=== PATIENT | female | born 1965 | race Caucasian/White ===

== ENCOUNTER 2018-07-29 10:50 | Day surgery (SDC) | payer OTHER ==
[2018-07-28 14:42] LABS: HEMATOCRIT 39.1 % (36.0-48.0); HEMOGLOBIN 13.4 g/dL (12-16); MCH 32.1 pg (26.0-34.0); MCHC 34.3 g/dL (31.0-37.0); MCV 93.5 fL (80.0-100.0); RBC 4.18 10x6/uL (4.00-5.40); RDW 12.5 % (11.5-14.5); WBC 6.6 10x3/uL (4.8-10.8)
[~2018-07-29] VITALS: Ht 152.4 cm; Wt 57.2 kg
[~2018-07-29 10:50] MED LIST: CELEXA10 MG PO; CYCLOBENZAPRINE5 MG PO; DUEXIS 800-26.1 EACH PO; VALIUM5 MG PO; advair diskus
[2018-07-29 11:31] VITALS: BP 135/89; Ht 152.4 cm; Wt 57.2 kg
--- NOTE | 2018-07-29 11:50 | NUR ---
1148 PT VERY ANXIOUS AND READY FOR SURGERY. TOOK VALIUM AT HOME BUT WANTS TO VALIUM AVAILABLE FOR PRE-OP. ICE APPLIED TO RIGHT SHOULDER FOR SOME PAIN RELIEF.
[2018-07-29] MEDS ORDERED: OXYCODONE HCL5 M1 PO (14:44)
[2018-07-29] MEDS ORDERED: VISTARIL50 MG PO (14:44)
--- NOTE | 2018-07-29 15:00 | NUR ---
NOTICIED PATIENT GRIMACING WHILE TAKING MONITORS OFF FOR D/C. PATIENT STATES "I THINK I AM STARTING TO HURT A LITTLE BIT". OFFERED TO ADMINISTER PAIN MEDICATION PER ANESTHESIA ORDERS HOWEVER WE WOULD NEED TO STAY IN RECOVERY FOR A LONGER TIME DUE TO REQUIRED MONITORING. PATIENT DENIES PAIN MEDICATION AT THIS TIME STATES "I AM READY TO JUST GET BACK OVER TO MY ROOM".
--- NOTE | 2018-07-29 16:33 | OP ---
PATIENT NAME: SHAGUFTA ALEJANDRO MEDICAL RECORD: [id number] :67 LOCATION:SARA ADMISSION DATE: SURGEON: ALEKS SYLVESTER DO DATE OF OPERATION: 07/29/2018 PROCEDURES PERFORMED: Right shoulder arthroscopy with bicep tenodesis, distal clavicle excision, subacromial decompression, and labral debridement. 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 INDICATIONS: Ms. Alejandor is a 53-year-old female who has been dealing with right shoulder pain for quite some time. She has tried all manner of nonoperative treatment including physical therapy and injections to no avail. She discussed with my nurse practitioner her treatment options after having an MRI, which demonstrated a large SLAP tear as well as a partial rotator cuff tear, which was not seen on the scope. I informed her we could do a subacromial decompression with bicep tenodesis to look at her rotator cuff as well as distal clavicle excision. After having failed all nonoperative treatment, she was okay with that plan. She was aware of risks including infection, bleeding, damage to nerve or vessels, need for further surgery, and even ; and she signed the consent. SURGEON: Aleks Sylvester DO DESCRIPTION OF PROCEDURE: The patient received a block by anesthesia in the preoperative area. She was taken to the operative suite and laid in the left lateral decubitus position with her right arm up and axillary roll under the axilla. The right shoulder was then prepped and draped in sterile fashion. Time-out was performed. Everyone was in agreement of correct side, site, patient, and procedure. Once it was prepped and draped and the time-out had been performed, the posterior portal was established using an 18-gauge spinal needle and then 60 mL of normal saline was injected into the shoulder joint itself. Then, this was removed. A #11 blade scalpel was used to cut the skin for the portal. Trocar was then entered into the shoulder joint. Once the shoulder joint was entered, the water was turned on. The large SLAP tear was noted to be very severe and the anterior portal was then established with an 18-gauge spinal needle and a #11 blade scalpel. The burner was then brought in through the anterior portal and bicep tenotomy was done at that time. The rotator cuff was then inspected. The subscapularis tendon was in good shape with no tear seen as well as the supraspinatus, the infraspinatus, and the humeral head. She did have a small spot of less than 3 mm of grade III chondromalacia noted on it. The labrum was then debrided with the burner. The scope was then switched into the subacromial space. Subacromial decompression was done. The anterolateral aspect of the acromion was removed as well as the distal clavicle, opening the AC joint up to approximately 7 mm. The rotator cuff was then inspected thoroughly on the bursal side and no tears were seen in it either. The arm was rotated internally and externally. The scope was then removed and the attention was drawn to the anterior humerus, where an incision had been marked out for the bicep tenodesis site. The skin was incised with a #15 blade scalpel. Careful dissection was made down to the long head of the bicep tendon. It was pulled out through the wound, whipstitched, and then drill OPERATIVE REPORT [id number] SHAGUFTA ALEJANDRO hole was placed into the humerus just through the single cortex. Then, the whipstitch tendon was put on a button and then cinched down. Once the button was placed into the hole that was drilled, it was cinched down and then tied. Then, a free needle was used to go through to the tendon again and retied. Then, the extra tendon and suture were cut at that time. The site was irrigated and then closed with 2-0 Vicryl on the skin and 4-0 Monocryl ran on the skin. The anterior, lateral, and posterior portals were all closed with 4-0 Vicryl in interrupted fashion. The lateral portal had been established once the subacromial space was entered with an 18-gauge spinal needle and a #11 blade scalpel. Once the sites were closed with 4-0 Monocryl, Dermabond was placed on each of the incision sites. Telfa and Tegaderm were placed on that. An ABD with Medipore tape was then placed over the shoulder. The patient was then awakened and taken to recovery in stable condition and placed in a sling. COMPLICATIONS: None. BLOOD LOSS: Minimal. TRANSINT:[id number] Voice Confirmation ID: [id number] DOCUMENT ID: [id number] ALEKS SYLVESTER DO at 1633 CC: [id number] DICTATION DATE: 07/29/18 1451 CHARGE MASTER COORDINATOR: 07/29/18 1552 [facility] 07/29/[address] [address]
== END 2018-07-29 16:15 | disposition home or self-care (01) ==
LOC: D.OPS 10:50 → D.PAN 11:10 → D.OPS 11:15 → D.PAN 11:15 → D.OPS 16:15
PROVIDERS: Anesthesiology; ATTEND Orthopaedic Surgery
DX: S43.431A Superior glenoid labrum lesion of right shoulder, initial encounter (principal); M13.811 Other specified arthritis, right shoulder; M75.41 Impingement syndrome of right shoulder; M94.211 Chondromalacia, right shoulder; Z01.812 Encounter for preprocedural laboratory examination; X58.XXXA Exposure to other specified factors, initial encounter

== ENCOUNTER → 2018-08-21 15:01 | Outpatient (CLI) | payer OTHER ==
[2018-07-29 11:31] VITALS: BMI 24.6
[~2018-08-21 15:01] MED LIST changes: +OXYCODONE HCL5 M1 PO; +VISTARIL50 MG PO
== END | disposition home or self-care (01) ==
LOC: D.CT 15:00
PROVIDERS: ATTEND Orthopaedic Surgery
DX: R22.1 Localized swelling, mass and lump, neck (principal)

== ENCOUNTER 2018-11-04 06:35 | Day surgery (SDC) | payer OTHER ==
[2018-11-03 13:37] LABS: HEMATOCRIT 41.9 % (36.0-48.0); HEMOGLOBIN 14.2 g/dL (12-16); MCH 32.6 pg (26.0-34.0); MCHC 33.9 g/dL (31.0-37.0); MCV 96.1 fL (80.0-100.0); MEAN PLATELET VOLUME 10.4 fL (7.4-10.4); RBC 4.36 10x6/uL (4.00-5.40); WBC 6.2 10x3/uL (4.8-10.8)
[~2018-11-04] VITALS: Ht 152.4 cm; Wt 55.3 kg
[~2018-11-04 06:35] MED LIST changes: +ACETAMINOPHEN325 MG PO; +ADVAIR 250/501 DISK INH; +BUSPIRONE HCL7.5 MG PO; +ULTRAM50 MG PO; -advair diskus
[2018-11-04] MEDS ORDERED: DUEXIS 800-26.1 EACH PO (06:56)
[2018-11-04 06:58] VITALS: BP 146/88; Ht 152.4 cm; Wt 55.3 kg
[2018-11-04] MEDS ORDERED: PERCOCET 10-321 EAC1 PO (11:45)
[2018-11-04] MEDS ORDERED: VISTARIL50 MG PO (11:45)
--- NOTE | 2018-11-04 13:55 | NUR ---
IV REMOVED AND ASSISTED WITH GETTING DRESSED AND INSTRUCTIONS GIVEN D/C HOME 2669
--- NOTE | 2018-11-04 14:09 | OP ---
PATIENT NAME: SHAGUFTA ALEJANDRO MEDICAL RECORD: [id number] :67 LOCATION:SARA ADMISSION DATE: SURGEON: BOUBACAR SYLVESTER DO DATE OF OPERATION: 11/04/2018 PROCEDURE PERFORMED: Left shoulder arthroscopy with rotator cuff repair, labral debridement, and biceps tenodesis. PREOPERATIVE DIAGNOSES: Left shoulder SLAP tear and massive rotator cuff tear. POSTOPERATIVE DIAGNOSES: Left shoulder SLAP tear and massive rotator cuff tear. INDICATIONS: Ms. Alejandro is a 53-year-old female who had an MRI done few weeks ago and it has demonstrated a rotator cuff tear in the supraspinatus and retracted 3 cm. She said she fell a couple of months ago and it has been hurting her since. I informed her that, with that retraction, it did not appear to have any fatty atrophy in the tendon; but with that amount of retraction, it would be a very difficult repair. I would attempt to repair it, but that she is at risk for retear and may not be able to repair it. She was okay with that as were the other risks of infection, bleeding, damage to nerves and vessels, and need for further surgery. She signed the consent. SURGEON: Boubacar Sylvester DO DISPERSION MIXER: LUIS Forbes DESCRIPTION OF PROCEDURE: The patient received a block in the preoperative area by anesthesia. She was taken to the operative suite and laid in the right lateral decubitus position with left shoulder up. Left shoulder was prepped and draped in sterile fashion. Time-out was performed and everyone was in agreement with correct side, site, patient, and procedure. Once that was done, the shoulder was insufflated with 60 mL of normal saline. Using 18-gauge spinal needle to the posterior portal, #11 blade scalpel was then used to establish posterior portal and the trocar was entered in the shoulder joint. The camera was then entered. The labral tear was seen as well as the massive supraspinatus tear with retraction. Anterior portal site was established with 18-guage spinal needle and 11 blade scalpel. Burner was brought in and biceps tenotomy was done at that time and labral debridement. The scope was then switched to the subacromial space. I attempted to get the adhesions down and off of the supraspinatus tendon and used a grasper to pull it over for the repair and then opened and did this further by getting a stitch in and pulling and breaking up the adhesions under the coracoid as well as under the acromion. The tendon did not pull all the way over. There was a longitudinal tear in the muscle. This was fixed with xacu-an-rhod stitch through the anchors and 2 anchors were used medially. I sutured the tendon down to the greater tuberosity after it had been decorticated. Then, 2 crossing stitches were used to fix the xwyo-up-fkkm longitudinal tear that she had. A separate stitch was then used to tie this tear to the infraspinatus, which was not torn. Then, 2 lateral row anchors were used to pull it over. The Regeneten graft was then put on top of this with kennedy medially and laterally. Then, the site was irrigated thoroughly and closed with 2-0 Vicryl in a ibbopz-wv-syvia fashion on the deltoid fascia, in inverted interrupted fashion on the skin, and then 4-0 Monocryl around the skin. A separate incision was then made on the anterior part of the humerus. Careful dissection was made down to the long head of the biceps tendon. This was pulled out through a whipstitch and a single button was put unicortically through the OPERATIVE REPORT [id number] SHAGUFTA ALEJANDRO, cinched down the bicep tendon to that, and then a free needle was used to tie through the bicep tendon and tied down. Once that was completed, the site was irrigated, closed with 2-0 Vicryl in inverted interrupted fashion, 4-0 Monocryl on the skin, and then 4-0 Monocryl was used in inverted interrupted fashion along the 2 scope portals of anterior and posterior. Then, Dermabond glue was placed on that with Telfa and Tegaderm upon those. She was awakened and taken to recovery in stable condition. BLOOD LOSS: Approximately 15 mL. COMPLICATIONS: None. TRANSINT:[id number] Voice Confirmation ID: [id number] DOCUMENT ID: [id number] BOUBACAR SYLVESTER DO at 1409 CC: [id number] DICTATION DATE: 11/04/18 1156 DOUBLE REAMER OPERATOR: 11/04/18 1236 [facility] 11/04/18 [facility] [address] [place] [address]
== END 2018-11-04 13:25 | disposition home or self-care (01) ==
LOC: D.OPS 06:35 → D.PAN 08:45 → D.OPS 08:45 → D.PAN 09:00 → D.OPS 10:00
PROVIDERS: Anesthesiology; ATTEND Orthopaedic Surgery
DX: S43.432A Superior glenoid labrum lesion of left shoulder, initial encounter (principal); M75.112 Incomplete rotator cuff tear or rupture of left shoulder, not specified as traumatic; W19.XXXA Unspecified fall, initial encounter; Z01.812 Encounter for preprocedural laboratory examination

== ENCOUNTER → 2019-02-13 15:02 | Outpatient (CLI) | payer OTHER ==
[2018-11-04 06:58] VITALS: BMI 23.8
[~2019-02-13 15:02] MED LIST changes: +PERCOCET 10-321 EAC1 PO
== END | disposition home or self-care (01) ==
LOC: D.MRI 15:02
PROVIDERS: ATTEND Nurse Practitioner Family
DX: M25.511 Pain in right shoulder (principal)

== ENCOUNTER 2019-04-23 18:19 | Inpatient (IN) | payer OTHER ==
[~2019-04-23] VITALS: Ht 152.4 cm; Wt 52.2 kg
--- NOTE | ~2019-04-23 | OP ---
PATIENT NAME: SHAGUFTA BANEGAS MEDICAL RECORD: [id number] :67 LOCATION:D.MS [id number] ADMISSION DATE:04/23/19 SURGEON: WILBER BULLOCK MD DATE OF OPERATION: 04/27/2019 PREOPERATIVE DIAGNOSES: 1. Right upper quadrant pain. 2. Right lower quadrant pain. 3. Pancreatitis. 4. Biliary dyskinesia. POSTOPERATIVE DIAGNOSES: 1. Right upper quadrant pain. 2. Right lower quadrant pain. 3. Pancreatitis. 4. Biliary dyskinesia. 5. Hepatomegaly. PROCEDURES: 1. Laparoscopic cholecystectomy. 2. Intraoperative cholangiography without immediate surgeon interpretation. 3. 14-gauge core needle liver biopsies. 4. Laparoscopic appendectomy. SURGEON: Wilber Bullock MD CLOTH PICKER: None. BLOOD LOSS: Minimal. ANESTHESIA: General. COMPLICATIONS: None. The patient had a normal ejection fraction on the biliary scan with ejection fraction. However, she did have exact reproduction of symptoms with ingestion of Ensure. The indication for the appendectomy is right lower quadrant pain. The appendectomy was performed as it may be therapeutic or it could avoid diagnostic confusion in the future should the patient have recurrence or persistence of right lower quadrant abdominal pain. OPERATIVE COURSE: The patient was conveyed to the operating room electively on 04/27/2019. General anesthesia was induced by the anesthesia staff. The abdomen was sterilely prepped and draped. An incision was accomplished in the left upper quadrant. A Veress needle was inserted through the skin incision into the peritoneal cavity. CO2 insufflation was begun. Once a sufficient pneumoperitoneum had been achieved, a 5-mm trocar was inserted through an incision in the epigastrium. Under direct internal vision utilizing a television camera, a 5-mm trocar was inserted far laterally in the right upper quadrant. A 12-mm trocar was inserted through an incision at the umbilicus. During insertion of the Veress needle and all trocars, there appeared to have been no injury to the bowels, any intraperitoneal or retroperitoneal structures. An abdominal survey was undertaken. The indication for the liver biopsy was hepatomegaly. Under laparoscopic guidance, I percutaneously accessed the right OPERATIVE REPORT [id number] SHAGUFTA BANEGAS upper quadrant utilizing a 14-gauge core biopsy device. Cores were obtained over the convexity of the liver. The biopsy sites were made hemostatic with electrocautery. I then advanced a grasper and grasped the gallbladder. I advanced a cholangiogram trocar and punctured the fundus of the gallbladder. I aspirated bile. I then injected dye. Under real time fluoroscopy, static cholangiographic images were obtained and these are sent to the radiologist for interpretation. The gallbladder was retracted cephalad. The infundibulum was retracted laterally. Blunt dissection was begun in the triangle of Calot. One cystic artery and one cystic duct were identified. These were clipped multiply and divided between clips. The gallbladder was then excised from its bed in the liver. It was placed within a bag retrieval device and was withdrawn through the umbilical fascia defect. The patient was then placed in Trendelenburg. Utilizing endoscopic Александр retractors, the appendix was noted. A window was created at the base of the mesoappendix. I stapled across the tip of the cecum with an Endo-ADELINA type stapler utilizing a blue load. I then took down the mesoappendix utilizing the laparoscopic EnSeal device. The appendix was placed within a bag retrieval device. It was withdrawn out through the umbilical fascia defect. I replaced the 12-mm trocar. I irrigated in the right lower quadrant as well as the right upper quadrant. There was no bleeding even at low pressure of 8. The 12-mm trocar was removed. Utilizing the João-Amee suture closure device and 0 Vicryl sutures, I closed the fascial defect at the umbilicus. The umbilical skin incision was closed with interrupted 4-0 Vicryl Rapide sutures. The other skin incisions were closed with interrupted intracuticular 3-0 Vicryls. Benzoin and Steri-Strips were applied. The patient was then extubated and conveyed to post-anesthesia care unit where she was in stable condition. I plan that she will be dismissed home soon on an narcotic analgesic as well as Colace. TRANSINT:[id number] Voice Confirmation ID: [id number] DOCUMENT ID: [id number] WILBER BULLOCK MD CC: KENZIE ROSADO DO [id number] DICTATION DATE: 04/28/1954 LIMITED RADIOLOGY TECHNICIAN: 04/28/19 1206 DIS IN 04/27/19 [id number] [place] [address]
--- NOTE | 2019-04-23 18:36 | NUR ---
RECEIVED PATIENT DIRECT ADMIT FROM DR. ROSADO'S OFFICE. ALERT AND ORIENTED. C/O ABDOMINAL PAIN. ADMITTED WITH PANCREATITIS. NO S/S OF ACUTE DISTRESS NOTED. WILL CONTINUE TO MONITOR.
[2019-04-23 19:19] LABS: HEMATOCRIT 27.4 % (36.0-48.0); HEMOGLOBIN 9.1 g/dL (12-16); MCH 32.7 pg (26.0-34.0); MCHC 33.2 g/dL (31.0-37.0); MCV 98.6 fL (80.0-100.0); MEAN PLATELET VOLUME 10.3 fL (7.4-10.4); PLATELET COUNT 205 10x3/uL (130-400); RBC 2.78 10x6/uL (4.00-5.40); RDW 12.4 % (11.5-14.5); WBC 9.7 10x3/uL (4.8-10.8)
[2019-04-23 19:30] LABS: ALBUMIN 1.7 g/dL (3.4-5.0); ALKALINE PHOSPHATASE 115 U/L (46-116); ALT (SGPT) 46 U/L (10-68); AMYLASE - SERUM 27 U/L (25-115); BILIRUBIN - TOTAL 0.73 mg/dL (0.2-1.3); CALC OSMOLALITY 274 mosm/kg (275-300); CARBON DIOXIDE 24.4 mmol/L (21.0-32.0); CHLORIDE - SERUM 105 mmol/L (98-107); CREATININE - SERUM 0.7 mg/dL (0.6-1.3); GLUCOSE 120 mg/dL (74-106); LIPASE 215 U/L (73-393); POTASSIUM - SERUM 3.3 mmol/L (3.5-5.1); PROTEIN - SERUM 6.2 g/dL (6.4-8.2); SODIUM 138 mmol/L (136-145); UREA NITROGEN 6 mg/dL (7-18); eGFR NON AFRICAN AMERICAN > 90 mL/min (90-120)
[2019-04-23 19:56] LABS: EOSINOPHILS 1 % (0-7); LYMPHOCYTES 16 % (15-50); MONOCYTES 11 % (2-11); NEUTROPHILS 56 % (40-80); PLATELET ESTIMATE NORMAL
[2019-04-23 20:00] VITALS: BP 122/72
[2019-04-23 22:01] VITALS: BP 122/72; BMI 22.5
[2019-04-23] MEDS ORDERED: METOPROLOL TART50 MG PO (22:28)
[2019-04-23] MEDS ORDERED: CELEXA40 MG PO (22:30)
[2019-04-24] VITALS: BP 84/49
[2019-04-24 00:34] LABS: APPEARANCE CLEAR (CLEAR); BILIRUBIN NEGATIVE (NEGATIVE); COLOR YELLOW (YELLOW); GLUCOSE NEGATIVE (NEGATIVE); KETONE NEGATIVE (NEGATIVE); NITRITE POSITIVE (NEGATIVE); PROTEIN 1+ mg/dL (NEGATIVE); SPECIFIC GRAVITY 1.005 (1.005-1.020); UROBILINOGEN NORMAL (NORMAL)
[2019-04-24 00:35] LABS: EPITHELIAL CELLS 0-5 /hpf (0-5); RED CELLS - URINE NONE SEEN /hpf (0-5); WHITE CELLS - URINE 0-5 /hpf (NEGATIVE)
[2019-04-24 00:36] LABS: BACTERIA MANY /hpf (NEGATIVE)
--- NOTE | 2019-04-24 03:07 | NUR ---
ASSESSED AT THE BEGINNING OF THE SHIFT. SHE IS ALERT AND OREINTED, ABLE TO VERBALIZE NEEDS. AT THE BEGINNING IT WAS HARD TO GET AN IV IN PLAC[place] FOR CT SCAN. SHE WAS STUCK 6 TIMES, FIRST GETTING A LITTLE ONE IN HER RIGHT FOREARM THAT WAS SLOW TO ACCEPT MEDS BUT DID NOT BLOW. THEN WE OBTAINED ONE IN THE RIGHT WRIST THAT WOULD ALLOW A CT SCAN. SHE HAS HAD PAIN MEDS TWO TIMES FOR ABD PAIN WHICH APPEARS SEVERE. AT THIS TIME SHE IS SLEEPING.
[2019-04-24 04:00] VITALS: BP 100/56
[2019-04-24 06:19] LABS: BASOPHILS 0.2 % (0-2); EOSINOPHILS 1.5 % (0-7); HEMATOCRIT 23.8 % (36.0-48.0); HEMOGLOBIN 7.8 g/dL (12-16); IMMATURE GRANULOCYTES 6.1 % (0-5); LYMPHOCYTES 14.8 % (15-50); MCH 32.6 pg (26.0-34.0); MCHC 32.8 g/dL (31.0-37.0); MCV 99.6 fL (80.0-100.0); MEAN PLATELET VOLUME 10.3 fL (7.4-10.4); MONOCYTES 14.8 % (2-11); NEUTROPHILS 62.6 % (40-80); PLATELET COUNT 201 10x3/uL (130-400); RBC 2.39 10x6/uL (4.00-5.40); RDW 12.5 % (11.5-14.5); WBC 9.3 10x3/uL (4.8-10.8)
[2019-04-24 06:35] LABS: CALC OSMOLALITY 284 mosm/kg (275-300); CALCIUM 7.6 mg/dL (8.5-10.1); CARBON DIOXIDE 25.1 mmol/L (21.0-32.0); CHLORIDE - SERUM 110 mmol/L (98-107); CREATININE - SERUM 0.6 mg/dL (0.6-1.3); MAGNESIUM - SERUM 1.6 mg/dL (1.8-2.4); PHOSPHOROUS 2.5 mg/dL (2.5-4.9); POTASSIUM - SERUM 3.3 mmol/L (3.5-5.1); SODIUM 145 mmol/L (136-145); UREA NITROGEN 6 mg/dL (7-18); eGFR NON AFRICAN AMERICAN > 90 mL/min (90-120)
[2019-04-24 06:37] LABS: GLUCOSE 71 mg/dL (74-106)
--- NOTE | 2019-04-24 07:24 | NUR ---
PT IS RESTING IN BED WITH EYES OPEN. RESPIRATIONS ARE EVEN AND UNLABORED. PT REPORTS PAIN 8/10 TO RLQ. WILL ADDRESS. SEE EMAR. PT DENIES PRESENCE OF N/V. PIV TO RIGHT FA X 2 INFUSING WITHOUT DIFFICULTY. BED IS IN THE LOWEST POSITION. CALL LIGHT AND BEDSIDE TABLE ARE WITIHN REACH. SIDE RAILS X 2. PT DENIES FURTHER NEEDS. WILL CONT TO MONITOR.
[2019-04-24 07:55] LABS: BASOPHILS 0.2 % (0-2); EOSINOPHILS 1.6 % (0-7); HEMOGLOBIN 8.1 g/dL (12-16); IMMATURE GRANULOCYTES 3.9 % (0-5); LYMPHOCYTES 11.8 % (15-50); MCH 32.5 pg (26.0-34.0); MCHC 32.4 g/dL (31.0-37.0); MCV 100.4 fL (80.0-100.0); MONOCYTES 16.5 % (2-11); PLATELET COUNT 196 10x3/uL (130-400); RBC 2.49 10x6/uL (4.00-5.40); RDW 12.5 % (11.5-14.5); WBC 9.6 10x3/uL (4.8-10.8)
[2019-04-24 08:29] VITALS: BP 121/72
[2019-04-24 08:37] LABS: CHOL - HDL RATIO 3.2 ratio (2.3-4.1); LDL-HDL RATIO 1.7 ratio (1.5-3.5)
[2019-04-24 10:30] LABS: % SATURATION 12 % (15-55); IRON 13 ug/dl (35-150); TOTAL IRON BIND CAPACITY 108 ug/dl (260-445); UNSAT IRON BIND CAPACITY 95 ug/dl (150-375)
[2019-04-24 12:52] VITALS: BP 134/71
[2019-04-24 13:03] VITALS: BMI 22.4
--- NOTE | 2019-04-24 14:32 | NUR ---
PT WITH NOTICABLE IRRITABILITY AND REPORTS ANXIETY WITH HOSPITALIZATION. WILL ADDRESS. SEE EMAR.
[2019-04-24 18:14] VITALS: BP 124/71
[2019-04-24 20:00] VITALS: BP 124/70
[2019-04-24 21:01] VITALS: Ht 152.4 cm; Wt 52.2 kg
[2019-04-25] VITALS (8 sets, daily range): BP systolic 94–180; BP diastolic 57–82
--- NOTE | 2019-04-25 06:24 | NUR ---
ASSESSED AT THE BEGINNING OF THE SHIFT. PT IS ALERT AND ORIENTED, ABLE TO VERBALIZE NEEDS. SHE HAS NOT REQUESTED MUCH DURING THE NIGHT. WHEN CHECKED ON SHE APPEARS TO BE ASLEEP WITH NO COMPLAINTS.SHE HAS BEEN UP TO THE BATHROOM AD SONIA AND AT MIDNIGHT WE PLACED HER NPO FOR A PIPPIDA SCAN THIS MORNING. SHE WAS INFORMED ABOUT THE NEED TO NOT TAKE PAIN MEDS SO THE TOOK HER LAST MED MED AT THAT TIME. SHE IS STILL RESTING QUIET WITH NO COMPLAINTS VOICED.
[2019-04-25 06:28] LABS: BASOPHILS 0.1 % (0-2); EOSINOPHILS 1.3 % (0-7); HEMATOCRIT 24.6 % (36.0-48.0); LYMPHOCYTES 8.9 % (15-50); MCH 32.9 pg (26.0-34.0); MCHC 32.5 g/dL (31.0-37.0); MCV 101.2 fL (80.0-100.0); MEAN PLATELET VOLUME 10.1 fL (7.4-10.4); MONOCYTES 16.7 % (2-11); RBC 2.43 10x6/uL (4.00-5.40); RDW 12.7 % (11.5-14.5)
[2019-04-25 06:30] LABS: PLATELET COUNT 254 10x3/uL (130-400); WBC 14.1 10x3/uL (4.8-10.8)
[2019-04-25 06:52] LABS: CALCIUM 7.8 mg/dL (8.5-10.1); CARBON DIOXIDE 21.9 mmol/L (21.0-32.0); CHLORIDE - SERUM 109 mmol/L (98-107); CREATININE - SERUM 0.6 mg/dL (0.6-1.3); MAGNESIUM - SERUM 1.7 mg/dL (1.8-2.4); POTASSIUM - SERUM 3.8 mmol/L (3.5-5.1); SODIUM 142 mmol/L (136-145); eGFR NON AFRICAN AMERICAN > 90 mL/min (90-120)
[2019-04-25 06:53] LABS: PHOSPHOROUS 3.2 mg/dL (2.5-4.9)
[2019-04-25 06:54] LABS: CALC OSMOLALITY 277 mosm/kg (275-300); GLUCOSE 62 mg/dL (74-106); UREA NITROGEN 3 mg/dL (7-18)
--- NOTE | 2019-04-25 08:39 | NUR ---
PATIENT SITTING UP IN BED. STATES PAIN IS A 9 OUT OF 10 ON THE PAIN SCALE. REQUESTS A DRINK OF WATER. I TOLD HER WE CANNOT DO THAT UNTIL THE PIPDA SCAN. THAT IF WE HAVE ANYTHING BY MOUTH OR PAIN MEDICATION THEN THE RESULTS OF THE TEST WOULD BE INACCURATE. WELL WE WOULD HAVE TO POSTPONE THE TEST. PATIENT VERBALISED UNDERSTANDING. CL IN REACH. WCTM
--- NOTE | 2019-04-25 12:37 | NUR ---
PATIENT BACK FROM NM SCAN. MEDICATIONS GIVEN. PAIN MED PROVIDED. WATER PROVIDED. CL IN ROOM. FAMILY IN ROOM. ERICK
--- NOTE | 2019-04-25 14:59 | NUR ---
PATIENT HAD A SHOWER. REATTACHED TO IV THERAPY. FAMILY IN ROOM. REAPPLIED TO TELEMETRY. CL IN REACH. PROVIDED FRESH WATER. ERICK
--- NOTE | 2019-04-25 19:00 | NUR ---
BEDSIDE REPORT RECEIVED AND CARE OF PT ASSUMED. PT LYING IN SUPINE POSITION WITH EYES CLOSED. IV TO RIGHT FA PATENT WITH MVI INFUSING AT 125 ML/HR. TELEMETRY IN PLACE PER ORDER. WILL MONITOR FOR NEEDS.
--- NOTE | 2019-04-25 20:38 | NUR ---
HS MEDICATIONS GIVEN. WILL CONTINUE TO MONITOR FOR NEEDS.
--- NOTE | 2019-04-25 21:11 | NUR ---
CONSENTED FOR BLOOD TRANSFUSION WITH WITNESS NURSE.
--- NOTE | 2019-04-25 21:20 | NUR ---
ELEVATED TEMP OF 100.1 PRIOR TO BLOOD TRANSFUSION. GAVE PRN TYLENOL 500 MG PO.
--- NOTE | 2019-04-25 21:24 | NUR ---
STARTED PRBC INFUSION. WILL MONITOR CLOSLEY.
--- NOTE | 2019-04-25 22:00 | NUR ---
PAUSED BLOOD, FLUSHED IV, AND GAVE DILAUDID IVP PER REQUEST FOR PAIN, PER PRN ORDER. LINE FLUSHED PRIOR TO RE-STARTING BLOOD.
--- NOTE | 2019-04-25 23:52 | NUR ---
BLOOD TRANSFUSION COMPLETE AND LINE FLUSHING. VITALS STABLE AND PT IS AFEBRILE...STATES SHE IS FEELING BETTER ALREADY.
[2019-04-26 04:00] VITALS: BP 127/68
[2019-04-26 07:06] LABS: HEMATOCRIT 26.3 % (36.0-48.0); HEMOGLOBIN 8.5 g/dL (12-16); MCH 31.8 pg (26.0-34.0); MCHC 32.3 g/dL (31.0-37.0); PLATELET COUNT 288 10x3/uL (130-400); RBC 2.67 10x6/uL (4.00-5.40); RDW 14.7 % (11.5-14.5); WBC 14.7 10x3/uL (4.8-10.8)
[2019-04-26 07:10] LABS: MCV 98.5 fL (80.0-100.0)
[2019-04-26 07:29] LABS: LYMPHOCYTES 7 % (15-50); MONOCYTES 11 % (2-11); NEUTROPHILS 75 % (40-80); PLATELET ESTIMATE NORMAL
[2019-04-26 07:46] LABS: CALCIUM 7.8 mg/dL (8.5-10.1); CARBON DIOXIDE 22.9 mmol/L (21.0-32.0); CHLORIDE - SERUM 108 mmol/L (98-107); CREATININE - SERUM 0.5 mg/dL (0.6-1.3); MAGNESIUM - SERUM 1.9 mg/dL (1.8-2.4); PHOSPHOROUS 3.6 mg/dL (2.5-4.9); SODIUM 141 mmol/L (136-145); UREA NITROGEN 3 mg/dL (7-18); eGFR NON AFRICAN AMERICAN > 90 mL/min (90-120)
[2019-04-26 07:47] LABS: CALC OSMOLALITY 275 mosm/kg (275-300); GLUCOSE 63 mg/dL (74-106)
[2019-04-26 08:41] VITALS: BP 126/59
[2019-04-26 12:06] VITALS: BP 142/76
[2019-04-26 17:36] VITALS: BP 126/69
--- NOTE | 2019-04-26 19:00 | NUR ---
BEDSIDE REPORT RECEIVED AND CARE OF PT ASSUMED. PT LYING IN SUPINE POSITION WITH EYES CLOSED. IV TO RIGHT FA PATENT WITH NS INFUSING AT 100 ML/HR. WILL MONITOR FOR NEEDS.
[2019-04-26 20:00] VITALS: BP 126/61
--- NOTE | 2019-04-26 20:04 | NUR ---
HS MEDICATIONS GIVEN.
--- NOTE | 2019-04-26 20:50 | NUR ---
HIBACLENS SHOWER PERFORMED AND ALL LINENS AND GOWN CHANGED.
--- NOTE | 2019-04-26 21:33 | NUR ---
GAVE 150 ML OF MAG CITRATE PER NEW ORDER.
--- NOTE | 2019-04-26 22:50 | NUR ---
GAVE DILAUDID 0.5 MG IVP PER REQUEST FOR PAIN. WILL MONITOR FOR EFFECTIVENESSS.
[2019-04-27] VITALS: BP 98/551
--- NOTE | 2019-04-27 00:05 | NUR ---
NPO STATUS BEGINS NOW. ALL FOOD AND DRINKS REMOVED FROM BEDSIDE TABLE.
[2019-04-27 04:00] VITALS: BP 127/73
[2019-04-27 06:20] LABS: BASOPHILS 0.1 % (0-2); EOSINOPHILS 0.4 % (0-7); HEMATOCRIT 24.2 % (36.0-48.0); IMMATURE GRANULOCYTES 1.9 % (0-5); LYMPHOCYTES 8.2 % (15-50); MCH 31.9 pg (26.0-34.0); MCHC 33.1 g/dL (31.0-37.0); MEAN PLATELET VOLUME 9.7 fL (7.4-10.4); MONOCYTES 12.6 % (2-11); NEUTROPHILS 76.8 % (40-80); PLATELET COUNT 329 10x3/uL (130-400); RBC 2.51 10x6/uL (4.00-5.40); RDW 14.5 % (11.5-14.5); WBC 15.9 10x3/uL (4.8-10.8)
[2019-04-27 06:36] LABS: CALC OSMOLALITY 277 mosm/kg (275-300); CALCIUM 7.8 mg/dL (8.5-10.1); CARBON DIOXIDE 22.9 mmol/L (21.0-32.0); CHLORIDE - SERUM 109 mmol/L (98-107); CREATININE - SERUM 0.5 mg/dL (0.6-1.3); GLUCOSE 85 mg/dL (74-106); MAGNESIUM - SERUM 1.8 mg/dL (1.8-2.4); PHOSPHOROUS 2.8 mg/dL (2.5-4.9); POTASSIUM - SERUM 3.5 mmol/L (3.5-5.1); SODIUM 142 mmol/L (136-145); UREA NITROGEN 2 mg/dL (7-18); eGFR NON AFRICAN AMERICAN > 90 mL/min (90-120)
[2019-04-27 06:38] LABS: MCV 96.4 fL (80.0-100.0)
[2019-04-27 08:11] VITALS: BP 143/81
--- NOTE | 2019-04-27 09:44 | NUR ---
ASSESSMENT DONE. DENIES NEEDS
--- NOTE | 2019-04-27 10:35 | NUR ---
I have reviewed this patient and I concur with the Shift Assessment completed by the Licensed Practical Nurse today this shift.
--- NOTE | 2019-04-27 11:17 | NUR ---
TO OR PER BED
--- NOTE | 2019-04-27 13:59 | NUR ---
Nutrition follow-up: Pt NPO for Gabriele lopeze today Labs reviewed Wt: 114# RDN will monitor pts diet advancement and tolerance post-surery RDN following.
[2019-04-27 15:07] VITALS: BP 145/83
[2019-04-27] MEDS ORDERED: NICODERM C1 PATCH .1 TRANSDERM (15:46)
[2019-04-27] MEDS ORDERED: Levaquin PO (15:46)
--- NOTE | 2019-04-27 16:16 | MORECARE ---
CASE MANAGEMENT DISCHARGE SUMMARY PATIENT: SHAGUFTA BANEGAS BRYSON UNIT: [id number] ADM DATE: 04/23/19 AGE: 54 : 67 SEX: F [facility] AUTHOR: EDWIGE PONCE PHYSICIAN: REFERRING PHYSICIAN: KENZIE ROSADO DO DATE OF SERVICE: 04/27/19 Discharge Plan Patient Name[facility] SHAGUFTA BANEGAS [facility] [facility] 1965 Planned Disposition: Home Anticipated Discharge Date: 04/27/19 Discharge Date: Expected LOS: 4 Initial Reviewer: [email or web address] Initial Review Date: 04/27/2019 Generated: 04/27/19 5:16 pm Patient Name: SHAGUFTA BANEGAS Page [id number] at 1616 All edits/amendments must be made on the electronic document DICTATION DATE: 04/27/191615 OFFICE MACHINE INSTALLER: STEVENSON 04/27/191615 RPT#: [id number] DC DATE: STATUS: ADM IN [facility] [address] [place] [address] END OF REPORT
--- NOTE | 2019-04-27 16:23 | MORECARE ---
CASE MANAGEMENT DISCHARGE SUMMARY PATIENT: SHAGUFTA ALEJANDRO UNIT: [id number] ADM DATE: 04/23/19 AGE: 54 : 67 SEX: F ROOM/BED: D.[facility] AUTHOR: EDWIGE PONCE PHYSICIAN: REFERRING PHYSICIAN: KENZIE ROSADO DO DATE OF SERVICE: 04/27/19 Discharge Plan Patient Name: SHAGUFTA ALEJANDRO [facility] [facility] 1965 Planned Disposition: Home Anticipated Discharge Date: 04/27/19 Discharge Date: Expected LOS: 4 Initial Reviewer: [email or web address] Initial Review Date: 04/27/2019 Generated: 04/27/19 5:22 pm DCPIA - Discharge Planning Initial Assessment Updated by [email or web address]: Bozena Webb on 04/27/19 4:16 pm * Is the patient Alert and Oriented? Yes * How many steps to enter\exit or inside your home? 0/0 * PCP Dr. Rosado * Pharmacy [facility] * Preadmission Environment Home with Family * ADLs Independent * Equipment None * List name and contact numbers for known caregivers / representatives who currently or will assist patient after discharge: Jere Alejandro - [facility] - [phone] * Verbal permission to speak to the caregivers and representatives has been obtained from the patient. Yes * Community resources currently utilized None * Additional services required to return to the preadmission environment? No * Can the patient safely return to the preadmission environment? Yes * Has this patient been hospitalized within the prior 30 days at any hospital? No Last DP export: 04/27/19 3:16 pm Patient Name: SHAGUFTA ALEJANDRO Page [id number] at 1623 All edits/amendments must be made on the electronic document DICTATION DATE: 04/27/19 162 PASTRY CHEF: STEVENSON 04/27/191621 RPT#: [id number] DC DATE: STATUS: ADM IN [facility] [address] [place] [address] END OF REPORT
--- NOTE | 2019-04-27 18:10 | NUR ---
DC GIVEN TO PT
--- NOTE | 2019-04-27 18:28 | NUR ---
DC HOME PER PERSONAL CAR
--- NOTE | 2019-04-29 18:05 | MORECARE ---
CASE MANAGEMENT DISCHARGE SUMMARY PATIENT: SHAGUFTA ALEJANDRO UNIT: [id number] ADM DATE: 04/23/19 AGE: 54 : 67 SEX: F ROOM/BED: D.2233 AUTHOR: EDWIGE PONCE PHYSICIAN: REFERRING PHYSICIAN: KENZIE ROSADO DO DATE OF SERVICE: 04/29/19 Discharge Plan Patient Name: SHAGUFTA ALEJANDRO [facility] [facility] 1965 Planned Disposition: Home Anticipated Discharge Date: 04/27/19 Discharge Date: 04/27/2019 Expected LOS: 4 Initial Reviewer: [email or web address] Initial Review Date: 04/27/2019 Generated: 04/29/19 7:05 pm DCPIA - Discharge Planning Initial Assessment Updated by [email or web address]: Bozena Webb on 04/27/19 4:16 pm * Is the patient Alert and Oriented? Yes * How many steps to enter\exit or inside your home? 0/0 * PCP Dr. Rosado * Pharmacy [facility] * Preadmission Environment Home with Family * ADLs Independent * Equipment None * List name and contact numbers for known caregivers / representatives who currently or will assist patient after discharge: Jere Alejandro - spouse - [phone] * Verbal permission to speak to the caregivers and representatives has been obtained from the patient. Yes * Community resources currently utilized None * Additional services required to return to the preadmission environment? No * Can the patient safely return to the preadmission environment? Yes * Has this patient been hospitalized within the prior 30 days at any hospital? No Last DP export: 04/27/19 3:23 pm Patient Name: SHAGUFTA ALEJANDRO Page 17068 at 1805 All edits/amendments must be made on the electronic document DICTATION DATE: 04/29/191804 BAG MACHINE HELPER: STEVENSON 04/29/191804 RPT#: [id number] DC DATE:04/27/19 STATUS: DIS IN [facility] [address] [place] [address] END OF REPORT
== END 2019-04-27 18:28 | disposition home or self-care (01) | DRG 417 ==
LOC: D.MS 18:19
PROVIDERS: Emergency Medicine; Surgery; ADMIT Family Medicine; ATTEND Family Medicine
PROC: BF121ZZ Fluoroscopy of Gallbladder using Low Osmolar Contrast (ICD-10-PCS; 2019-04-27)
PROC: 0FB03ZX Excision of Liver, Percutaneous Approach, Diagnostic (ICD-10-PCS; 2019-04-27)
PROC: 0FT44ZZ Resection of Gallbladder, Percutaneous Endoscopic Approach (ICD-10-PCS; principal; 2019-04-27 11:45)
PROC: 0DTJ4ZZ Resection of Appendix, Percutaneous Endoscopic Approach (ICD-10-PCS; 2019-04-27 11:45)
DX: K85.20 Alcohol induced acute pancreatitis without necrosis or infection (principal); E43 Unspecified severe protein-calorie malnutrition; N39.0 Urinary tract infection, site not specified; F17.203 Nicotine dependence unspecified, with withdrawal; E87.6 Hypokalemia; D53.9 Nutritional anemia, unspecified; F10.10 Alcohol abuse, uncomplicated; J44.9 Chronic obstructive pulmonary disease, unspecified; M54.9 Dorsalgia, unspecified; F12.90 Cannabis use, unspecified, uncomplicated; R16.0 Hepatomegaly, not elsewhere classified; K82.8 Other specified diseases of gallbladder

== ENCOUNTER 2020-09-06 17:00 | Outpatient (CLI) | payer OTHER ==
[2019-04-24 21:01] VITALS: BMI 22.4
[~2020-09-06 17:00] MED LIST changes: +CELEXA40 MG PO; +Levaquin PO; +METOPROLOL TART50 MG PO; +NICODERM C1 PATCH .1 TRANSDERM
== END 2020-09-06 23:59 | disposition home or self-care (01) ==
LOC: D.MAMMO 17:00
PROVIDERS: ATTEND Family Medicine
DX: Z12.31 Encounter for screening mammogram for malignant neoplasm of breast (principal)